=== PATIENT | male | born 2000 | race African-American/Black ===

== ENCOUNTER 2022-03-19 12:31 | Inpatient (IN) | payer OTHER ==
[~2022-03-19] VITALS: Ht 180.3 cm; Wt 96.2 kg
[2022-03-19] MEDS ORDERED: SODIUM CHLORIDE 0.9% 1,000 ML IV ONE ×2 (12:45→15:00)
[2022-03-19 14:17] LABS: BASOPHILS % 0.4 % (0.0-2.0); EOSINOPHILS % 0.1 % (0.0-5.0); HEMATOCRIT. 41.4 % (42.0-52.0); HEMOGLOBIN. 13.2 g/dL (14.0-18.0); LYMPHOCYTES % 9.4 % (20.0-50.0); MEAN CORPUSCULAR HEMOGLOBIN 29.4 pg (28.0-32.0); MEAN CORPUSCULAR VOLUME 92.1 fL (80.0-94.0); MEAN PLATELET VOLUME 8.8 fl (7.4-10.4); MONOCYTES % 7.4 % (2.0-8.0); NEUTROPHILS % 82.7 % (40.0-76.0); PLATELET 304 x1000/uL (130-400); RED CELL DISTRIBUTION WIDTH 13.4 % (11.6-14.6)
[2022-03-19 14:23] LABS: CLARITY URINE CLEAR (CLEAR); COLOR URINE YELLOW (YELLOW); KETONES URINE 4+ (NEGATIVE); LEUKOCYTE ESTERASE URINE NEGATIVE (NEGATIVE); NITRITE URINE NEGATIVE (NEGATIVE); OCCULT BLOOD URINE NEGATIVE (NEGATIVE); PROTEIN URINE NEGATIVE (NEGATIVE); SPECIFIC GRAVITY URINE 1.028 (1.005-1.030); UROBILINOGEN URINE 0.2 E.U./dL (0.2-1.0)
[2022-03-19 14:27] LABS: CHLORIDE 99 mEq/L (98-107)
[2022-03-19] MEDS ORDERED: ONDANSETRON HCL 4MG/2ML INJ IV STA (14:52)
[2022-03-19] MEDS ORDERED: INSULIN REGULAR (DRIP) 100 UNITS in SODIUM CHLORIDE 0.9% 99 ML IV ONE ×2 (15:00→15:30)
[2022-03-19] MEDS ORDERED: INSULIN REGULAR 100U/100ML PMX 100 ML IV SCH ×2 (15:30→20:00)
[2022-03-19] MEDS ORDERED: KCL 20MEQ/100ML PREMIX 100 ML IV PRN (19:15)
[2022-03-19] MEDS ORDERED: ONDANSETRON HCL 4MG/2ML INJ IV PRN (19:15)
[2022-03-19] MEDS ORDERED: MAGNESIUM/ALUMINUM HYDROXIDE/SIMETHICONE 30ML UDC PO PRN (19:15)
[2022-03-19] MEDS ORDERED: DOCUSATE SODIUM 100MG CAPSULE PO PRN (19:15)
[2022-03-19] MEDS ORDERED: GUAIFENESIN 200MG/10ML SUGAR FREE UDC PO PRN (19:15)
[2022-03-19 19:18] LABS: CHLORIDE 107 mEq/L (98-107)
[2022-03-19] MEDS ORDERED: SODIUM BICARBONATE 8.4% 1 MEQ/ML 50ML SYR IV NR (19:25)
[2022-03-19] MEDS ORDERED: TRAMADOL 50MG TABLET PO PRN (19:26)
[2022-03-19] MEDS ORDERED: DEXTROSE 50% WATER 50ML SYRINGE IV PRN (19:35)
[2022-03-19] MEDS ORDERED: MAGNESIUM 1 G PREMIX 100 ML IV NR (19:35)
[2022-03-19] MEDS: BLOOD SUGAR DIAGNOSTIC STRIP TEST SCH ×4 (20:43→23:00)
[2022-03-19] MEDS: DEXT 5%/0.45% NACL 1000ML 1,000 ML IV SCH (20:43)
[2022-03-19 22:00] VITALS: BP 138/73
[2022-03-19] MEDS ORDERED: SODIUM BICARBONATE 8.4% 1 MEQ/ML 50ML SYR IV ONE (22:00)
[2022-03-19 23:00] VITALS: BP 139/69
[2022-03-19 23:29] VITALS: BP 130/68
[2022-03-20] VITALS (41 sets, daily range): BP systolic 96–142; BP diastolic 43–87
[2022-03-20] MEDS: BLOOD SUGAR DIAGNOSTIC STRIP TEST SCH ×17 (01:00→21:00)
[2022-03-20 02:19] LABS: CHLORIDE 110 mEq/L (98-107)
[2022-03-20] MEDS: ACETAMINOPHEN 325MG TABLET PO PRN ×2 (03:06→14:46)
[2022-03-20 08:16] LABS: BASOPHILS % 0.3 % (0.0-2.0); EOSINOPHILS % 0.5 % (0.0-5.0); HEMATOCRIT. 35.7 % (42.0-52.0); HEMOGLOBIN. 11.7 g/dL (14.0-18.0); LYMPHOCYTES % 16.6 % (20.0-50.0); MEAN CORPUSCULAR HEMOGLOBIN 29.5 pg (28.0-32.0); MEAN CORPUSCULAR VOLUME 89.7 fL (80.0-94.0); MEAN PLATELET VOLUME 7.8 fl (7.4-10.4); MONOCYTES % 9.9 % (2.0-8.0); NEUTROPHILS % 72.7 % (40.0-76.0); PLATELET 267 x1000/uL (130-400); RED BLOOD CELL COUNT 3.98 mill/uL (4.7-6.1); RED CELL DISTRIBUTION WIDTH 12.8 % (11.6-14.6)
[2022-03-20 08:25] LABS: CHLORIDE 109 mEq/L (98-107)
[2022-03-20] MEDS: DEXT 5%/0.45% NACL 1000ML 1,000 ML IV SCH (08:56)
[2022-03-20 13:02] LABS: CHLORIDE 110 mEq/L (98-107)
[2022-03-20] MEDS ORDERED: NALOXONE HCL 0.4MG/ML VIAL IV PRN (15:00)
[2022-03-20] MEDS ORDERED: DEXTROSE 50% WATER 50ML SYRINGE IV PRN (16:30)
[2022-03-20 18:00] LABS: CHLORIDE 107 mEq/L (98-107)
[2022-03-20] MEDS: INSULIN LISPRO 100 UNITS/ML SUBCUT SCH ×2 (18:20→21:22)
[2022-03-20] MEDS: INSULIN GLARGINE 100 UNITS/ML SUBCUT SCH ×2 (19:04→21:23)
[2022-03-20] MEDS ORDERED: PNEUMOCOCCAL 23-VAL P-SAC VAC 0.5 ML IM ONE (21:00)
[2022-03-20 22:22] LABS: CHLORIDE 106 mEq/L (98-107)
[2022-03-21] VITALS (17 sets, daily range): BP systolic 118–132; BP diastolic 51–75
[2022-03-21] MEDS: BLOOD SUGAR DIAGNOSTIC STRIP TEST SCH ×2 (07:50→12:50)
[2022-03-21] MEDS: INSULIN LISPRO 100 UNITS/ML SUBCUT SCH (09:00)
[2022-03-21 12:48] LABS: HEMATOCRIT 36.9 % (42.0-52.0); HEMOGLOBIN 12.2 g/dL (14.0-18.0); MEAN CORPUSCULAR HEMOGLOBIN 29.6 pg (28.0-32.0); MEAN CORPUSCULAR VOLUME 89.4 fL (80.0-94.0); PLATELET 260 x1000/uL (130-400); RED BLOOD CELL COUNT 4.13 mill/uL (4.7-6.1); RED CELL DISTRIBUTION WIDTH 12.7 % (11.6-14.6)
[2022-03-21 16:57] LABS: CHLORIDE 106 mEq/L (98-107)
== END 2022-03-21 23:00 | disposition home or self-care (01) | DRG 639 ==
LOC: ER 12:31 → EDBEDREQSVC 14:54 → CVICU 17:12 → EDBEDREQ 17:26 → EDBEDREQTM 17:26 → ENRESERV 19:13
PROVIDERS: ADMIT Hospitalist; ATTEND Hospitalist
DX: E11.10 Type 2 diabetes mellitus with ketoacidosis without coma (principal); Z91.14 Patient's other noncompliance with medication regimen; Z79.4 Long term (current) use of insulin
CPT/HCPCS: 36415; 80048; 80053; 81003; 82010; 82962; 83036; 84484; 85025; 85027; 90732; 93005; 99291; J1815; J2405; J3475; J3480; J3490; J7030; J7050

== ENCOUNTER 2022-04-11 11:50 | Inpatient (IN) | payer OTHER ==
[~2022-04-11] VITALS: Ht 182.9 cm; Wt 88.0 kg
[2022-04-11] MEDS ORDERED: KETOROLAC 30MG/ML VIAL IV STA (12:21)
[2022-04-11] MEDS ORDERED: ONDANSETRON HCL 4MG/2ML INJ IV STA (12:21)
[2022-04-11] MEDS ORDERED: SODIUM CHLORIDE 0.9% 1,000 ML IV ONE ×2 (12:30)
[2022-04-11 13:16] LABS: HEMATOCRIT. 47.6 % (42.0-52.0); HEMOGLOBIN. 15.5 g/dL (14.0-18.0); MEAN CORPUSCULAR HEMOGLOBIN 30.2 pg (28.0-32.0); MEAN CORPUSCULAR VOLUME 92.9 fL (80.0-94.0); PLATELET 248 x1000/uL (130-400); RED BLOOD CELL COUNT 5.13 mill/uL (4.7-6.1)
[2022-04-11 13:22] LABS: CHLORIDE 95 mEq/L (98-107)
[2022-04-11 13:32] LABS: BETA HYDROXYBUTYRATE 8.2 mMol/L (0.0-0.3)
[2022-04-11 13:46] LABS: PLATELET ESTIMATE NORMAL
[2022-04-11] MEDS ORDERED: KCL 20MEQ/100ML PREMIX 100 ML IV ONE (15:00)
[2022-04-11] MEDS ORDERED: INSULIN REGULAR 100U/100ML PMX 100 ML IV SCH (16:00)
[2022-04-11] MEDS: INSULIN REGULAR 100U/100ML PMX 100 ML IV SCH (17:25)
[2022-04-11 17:38] LABS: CHLORIDE 103 mEq/L (98-107)
[2022-04-11] MEDS ORDERED: DEXT 5%/0.9% NACL KCL 20MEQ/L 1,000 ML IV ONE (18:45)
[2022-04-11 19:00] LABS: CHLORIDE 104 mEq/L (98-107)
[2022-04-11] MEDS ORDERED: INSULIN GLARGINE 100 UNITS/ML SUBCUT ONE (19:30)
[2022-04-11 20:50] LABS: CHLORIDE 104 mEq/L (98-107)
[2022-04-11 22:38] LABS: CHLORIDE 103 mEq/L (98-107)
[2022-04-12] VITALS (20 sets, daily range): BP systolic 97–136; BP diastolic 59–77
[2022-04-12] MEDS: BLOOD SUGAR DIAGNOSTIC STRIP TEST SCH ×7 (01:00→17:12)
[2022-04-12] MEDS ORDERED: DEXTROSE 50% WATER 50ML SYRINGE IV PRN ×2 (02:00)
[2022-04-12] MEDS ORDERED: INSULIN REGULAR 100U/100ML PMX 100 ML IV SCH (02:00)
[2022-04-12] MEDS: INSULIN REGULAR 100U/100ML PMX 100 ML IV SCH (02:25)
[2022-04-12] MEDS ORDERED: DEXT 5%/0.9% NACL 1,000 ML IV SCH (02:30)
[2022-04-12 05:27] LABS: BASOPHILS % 0.8 % (0.0-2.0); EOSINOPHILS % 0.6 % (0.0-5.0); HEMATOCRIT. 39.1 % (42.0-52.0); HEMOGLOBIN. 12.9 g/dL (14.0-18.0); LYMPHOCYTES % 25.4 % (20.0-50.0); MEAN CORPUSCULAR HEMOGLOBIN 29.9 pg (28.0-32.0); MEAN CORPUSCULAR VOLUME 90.4 fL (80.0-94.0); MONOCYTES % 12.4 % (2.0-8.0); NEUTROPHILS % 60.8 % (40.0-76.0); PLATELET 207 x1000/uL (130-400); RED BLOOD CELL COUNT 4.32 mill/uL (4.7-6.1); RED CELL DISTRIBUTION WIDTH 12.9 % (11.6-14.6)
[2022-04-12 05:32] LABS: CHLORIDE 109 mEq/L (98-107)
[2022-04-12 05:39] LABS: PHOSPHORUS 3.1 mg/dL (2.5-4.9)
[2022-04-12] MEDS ORDERED: BLOOD SUGAR DIAGNOSTIC STRIP TEST SCH (07:50)
[2022-04-12] MEDS: INSULIN LISPRO 100 UNITS/ML SUBCUT SCH ×3 (07:50→17:16)
[2022-04-12] MEDS ORDERED: INSULIN GLARGINE 100 UNITS/ML SUBCUT SCH (10:00)
[2022-04-12] MEDS ORDERED: INSULIN LISPRO 100 UNITS/ML SUBCUT NR ×2 (15:00→17:30)
== END 2022-04-12 19:57 | disposition home or self-care (01) | DRG 639 ==
LOC: ER 11:50 → CVICU 17:04 → EDBEDREQTM 17:07 → EDBEDREQ 17:07 → EDBEDREQSVC 17:07 → ENRESERV 22:28
PROVIDERS: ADMIT Internal Medicine; ATTEND Internal Medicine
DX: E11.10 Type 2 diabetes mellitus with ketoacidosis without coma (principal); R10.9 Unspecified abdominal pain; Z79.4 Long term (current) use of insulin
CPT/HCPCS: 36415; 71045; 80048; 80053; 82010; 82962; 83036; 83735; 84100; 85025; 93005; 99291; J1815; J1885; J2405; J3480; J7030

== ENCOUNTER 2023-04-10 21:19 | Inpatient (IN) | payer OTHER ==
[~2023-04-10] VITALS: Ht 167.6 cm; Wt 88.0 kg
[2023-04-10] MEDS ORDERED: KCL 20MEQ/100ML PREMIX 100 ML IV PRN (21:45)
[2023-04-10] MEDS ORDERED: SODIUM CHLORIDE 0.9% 1,000 ML IV SCH (21:45)
[2023-04-10] MEDS ORDERED: SODIUM CHLORIDE 0.9% 1,000 ML IV ONE (21:45)
[2023-04-10] MEDS ORDERED: DEXTROSE 50% WATER 50ML SYRINGE IV PRN (21:45)
[2023-04-10] MEDS ORDERED: DEXT 5%/0.9% NACL 1,000 ML IV SCH (21:45)
[2023-04-10] MEDS ORDERED: POTASSIUM CHLORIDE INJ 40 MEQ in SODIUM CHLORIDE 0.9% 230 ML IV PRN (21:45)
[2023-04-10 22:25] LABS: BG BASE EXCESS -23.7 mmol/L (-2.0-2.0); BG CARBOXYHEMOGLOBIN 0.9 % (0.5-1.5); BG DEOXYHEMOGLOBIN 1.9 % (0.0-5.0); BG FRACTION INSPIRED OXYGEN 21; BG METHEMOGLOBIN 0.5 % (0.0-1.5); BG OXYGEN SATURATION 98.1 % (92.0-98.5); BG OXYHEMOGLOBIN 96.7 % (94.0-97.0); BG PCO2 13.7 mmHg (35.0-45.0); BG PH 7.083 (7.350-7.450); BG PO2 131.8 mmHg (75.0-100.0); BG SAMPLE SITE LEFT BRACHIAL; BG TOTAL HEMOGLOBIN 15.9 g/dL (12.0-18.0); BG VENT MODE ROOM AIR
[2023-04-10] MEDS ORDERED: LACTATED RINGERS 1,000 ML IV STA (23:14)
[2023-04-10] MEDS ORDERED: INSULIN REGULAR (HUMULIN R) 300UNITS/3ML VIAL IV ONE (23:15)
[2023-04-11] MEDS ORDERED: INSULIN REGULAR (DRIP) 100 UNITS in SODIUM CHLORIDE 0.9% 99 ML IV SCH ×2
[2023-04-11] MEDS ORDERED: INSULIN REGULAR 100U/100ML PMX 100 ML IV SCH
[2023-04-11 00:55] LABS: BETA HYDROXYBUTYRATE 11.4 mMol/L (0.0-0.3); CALCIUM 8.6 mg/dL (8.7-10.4); CHLORIDE 100 mEq/L (98-107); CREATININE 1.6 mg/dL (0.6-1.3); SODIUM 135 mEq/L (136-145); UREA NITROGEN BLOOD 22 mg/dL (9-23)
[2023-04-11 01:28] LABS: CARBON DIOXIDE < 10 mEq/L (21-32); GLUCOSE 696 mg/dL (70-105); POTASSIUM 7.7 mEq/L (3.5-5.1)
[2023-04-11 01:29] LABS: PHOSPHORUS 9.7 mg/dL (2.5-4.9)
[2023-04-11] MEDS ORDERED: SODIUM CHLORIDE 0.9% 1,000 ML IV ONE (01:30)
[2023-04-11 01:34] LABS: BASOPHILS % 0.6 % (0.0-2.0); DIFFERENTIAL COMMENT 0; EOSINOPHILS % 0.1 % (0.0-5.0); HEMOGLOBIN. 15.1 g/dL (14.0-18.0); LYMPHOCYTES % 8.5 % (20.0-50.0); MEAN CORPUSCULAR HEMOGLOBIN 29.8 pg (28.0-32.0); MEAN CORPUSCULAR HGB CONC 30.9 g/dL (31.0-37.0); MEAN CORPUSCULAR VOLUME 96.4 fL (80.0-94.0); MEAN PLATELET VOLUME 8.5 fl (7.4-10.4); MONOCYTES % 7.5 % (2.0-8.0); NEUTROPHILS % 83.3 % (40.0-76.0); PLATELET 299 x1000/uL (130-400); RED BLOOD CELL COUNT 5.08 mill/uL (4.7-6.1); RED CELL DISTRIBUTION WIDTH 12.8 % (11.6-14.6); WHITE BLOOD COUNT 27.7 x1000/uL (4.5-11.0)
[2023-04-11] MEDS ORDERED: CALCIUM GLUCONATE 100MG/ML 10ML VIAL IV ONE (01:45)
[2023-04-11 01:47] LABS: CALCIUM 8.8 mg/dL (8.7-10.4); CHLORIDE 100 mEq/L (98-107); CREATININE 1.7 mg/dL (0.6-1.3); SODIUM 134 mEq/L (136-145); UREA NITROGEN BLOOD 22 mg/dL (9-23)
[2023-04-11 02:01] LABS: CARBON DIOXIDE < 10 mEq/L (21-32)
[2023-04-11 02:02] LABS: GLUCOSE 639 mg/dL (70-105)
[2023-04-11 09:28] LABS: BASOPHILS % 0.3 % (0.0-2.0); DIFFERENTIAL COMMENT 0; HEMATOCRIT. 44.5 % (42.0-52.0); HEMOGLOBIN. 14.6 g/dL (14.0-18.0); LYMPHOCYTES % 9.6 % (20.0-50.0); MEAN CORPUSCULAR HGB CONC 32.7 g/dL (31.0-37.0); MEAN CORPUSCULAR VOLUME 88.8 fL (80.0-94.0); MEAN PLATELET VOLUME 8.5 fl (7.4-10.4); MONOCYTES % 8.9 % (2.0-8.0); NEUTROPHILS % 81.2 % (40.0-76.0); PLATELET 270 x1000/uL (130-400); RED BLOOD CELL COUNT 5.01 mill/uL (4.7-6.1); RED CELL DISTRIBUTION WIDTH 12.3 % (11.6-14.6); WHITE BLOOD COUNT 20.8 x1000/uL (4.5-11.0)
[2023-04-11 09:55] LABS: ALANINE AMINOTRANSFERASE 22 IU/L (10-49); ASPARTATE AMINOTRANSFERASE 32 IU/L (<34); BETA HYDROXYBUTYRATE 5.4 mMol/L (0.0-0.3); BILIRUBIN TOTAL 1.3 mg/dL (0.1-1.0); CARBON DIOXIDE 17 mEq/L (21-32); CHLORIDE 109 mEq/L (98-107); CREATININE 1.5 mg/dL (0.6-1.3); POTASSIUM 4.4 mEq/L (3.5-5.1); PROTEIN TOTAL 7.1 g/dL (6.0-8.3); SODIUM 142 mEq/L (136-145); UREA NITROGEN BLOOD 21 mg/dL (9-23)
[2023-04-11 10:28] LABS: GLUCOSE 232 mg/dL (70-105)
[2023-04-11 16:16] LABS: ALANINE AMINOTRANSFERASE 17 IU/L (10-49); ALBUMIN 3.5 g/dL (3.2-4.8); ASPARTATE AMINOTRANSFERASE 21 IU/L (<34); BILIRUBIN TOTAL 1.9 mg/dL (0.1-1.0); CALCIUM 8.4 mg/dL (8.7-10.4); CARBON DIOXIDE 25 mEq/L (21-32); CHLORIDE 113 mEq/L (98-107); CREATININE 1.2 mg/dL (0.6-1.3); GLUCOSE 148 mg/dL (70-105); POTASSIUM 3.8 mEq/L (3.5-5.1); PROTEIN TOTAL 6.6 g/dL (6.0-8.3); SODIUM 144 mEq/L (136-145); UREA NITROGEN BLOOD 25 mg/dL (9-23)
[2023-04-11] MEDS ORDERED: ACETAMINOPHEN 325MG TABLET PO PRN (19:15)
[2023-04-11] MEDS ORDERED: IPRATROPIUM/ALBUTEROL 0.5-3(2.5)MG/3ML NEB HHN PRN (19:15)
[2023-04-11] MEDS ORDERED: DIPHENHYDRAMINE 50MG/ML VIAL IV PRN (19:15)
[2023-04-11] MEDS ORDERED: ONDANSETRON HCL 4MG/2ML INJ IV PRN (19:15)
[2023-04-11] MEDS ORDERED: CLONIDINE 0.1MG TABLET PO PRN (19:15)
[2023-04-11] MEDS ORDERED: INSULIN GLARGINE 100 UNITS/ML SUBCUT NR (19:30)
[2023-04-11 21:11] LABS: CLARITY URINE CLEAR (CLEAR); COLOR URINE YELLOW (YELLOW); GLUCOSE URINE 3+ (NEGATIVE); KETONES URINE 3+ (NEGATIVE); LEUKOCYTE ESTERASE URINE NEGATIVE (NEGATIVE); NITRITE URINE NEGATIVE (NEGATIVE); OCCULT BLOOD URINE NEGATIVE (NEGATIVE); PROTEIN URINE TRACE (NEGATIVE); SPECIFIC GRAVITY URINE 1.032 (1.005-1.030); UROBILINOGEN URINE 0.2 E.U./dL (0.2-1.0)
[2023-04-11 21:40] LABS: BACTERIA URINE NONE SEEN; RBC URINE NONE SEEN /hpf (0-2); SQUAMOUS EPITHELIAL CELL URINE FEW /lpf (RARE/1+); WBC URINE NONE SEEN /hpf (0-2)
[2023-04-12] MEDS ORDERED: DEXTROSE 50% WATER 50ML SYRINGE IV PRN ×2 (01:45→07:45)
[2023-04-12] MEDS: INSULIN LISPRO 100 UNITS/ML SUBCUT SCH ×4 (01:47→12:55)
[2023-04-12 03:47] VITALS: BP 106/50; PULSE 104; RESP 18; TEMP 98
[2023-04-12 04:00] VITALS: BP 106/60; PULSE 90; RESP 21; TEMP 98.2
[2023-04-12 08:00] VITALS: BP 98/58; PULSE 96; RESP 18; TEMP 98.4
[2023-04-12] MEDS ORDERED: FLUO20CA33 PO (09:35)
[2023-04-12] MEDS ORDERED: INSLIS SUBCUT (09:35)
[2023-04-12] MEDS ORDERED: FLUOXETINE HCL 20MG CAPSULE PO SCH (10:00)
[2023-04-12 10:27] LABS: BASOPHILS % 0.3 % (0.0-2.0); HEMATOCRIT. 41.8 % (42.0-52.0); HEMOGLOBIN. 13.5 g/dL (14.0-18.0); LYMPHOCYTES % 12.8 % (20.0-50.0); MEAN CORPUSCULAR HEMOGLOBIN 29.4 pg (28.0-32.0); MEAN CORPUSCULAR HGB CONC 32.3 g/dL (31.0-37.0); MEAN CORPUSCULAR VOLUME 91.1 fL (80.0-94.0); MEAN PLATELET VOLUME 8.4 fl (7.4-10.4); MONOCYTES % 7.2 % (2.0-8.0); NEUTROPHILS % 79.7 % (40.0-76.0); PLATELET 241 x1000/uL (130-400); RED BLOOD CELL COUNT 4.59 mill/uL (4.7-6.1); RED CELL DISTRIBUTION WIDTH 12.5 % (11.6-14.6); WHITE BLOOD COUNT 14.6 x1000/uL (4.5-11.0)
[2023-04-12 10:53] LABS: ALANINE AMINOTRANSFERASE 19 IU/L (10-49); ALBUMIN 3.6 g/dL (3.2-4.8); ASPARTATE AMINOTRANSFERASE 18 IU/L (<34); CALCIUM 8.5 mg/dL (8.7-10.4); CARBON DIOXIDE 16 mEq/L (21-32); CHLORIDE 103 mEq/L (98-107); CREATININE 1.3 mg/dL (0.6-1.3); POTASSIUM 4.3 mEq/L (3.5-5.1); PROTEIN TOTAL 6.9 g/dL (6.0-8.3); UREA NITROGEN BLOOD 17 mg/dL (9-23)
[2023-04-12 11:23] LABS: GLUCOSE 349 mg/dL (70-105); SODIUM 134 mEq/L (136-145)
[2023-04-12] MEDS ORDERED: BLOOD SUGAR DIAGNOSTIC STRIP TEST SCH (11:45)
[2023-04-12 12:00] VITALS: BP 111/63; PULSE 94; RESP 18; TEMP 97.7
[2023-04-12] MEDS ORDERED: INSULIN GLARGINE 100 UNITS/ML SUBCUT NR (12:15)
[2023-04-12 15:57] VITALS: BP 116/63; PULSE 89; TEMP 97.7; O2SAT 97
[2023-04-12 16:00] VITALS: BP 116/63; PULSE 89; RESP 18; TEMP 97.7
== END 2023-04-12 16:30 | disposition home or self-care (01) | DRG 639 ==
LOC: ER 21:19 → EDBEDREQ 23:22 → MICUSO 04-11 00:10 → EDBEDREQ 04-11 00:12 → EDBEDREQSVC 04-11 20:43 → 5WST 04-12 06:30
PROVIDERS: ADMIT Internal Medicine; ATTEND Internal Medicine
DX: E10.10 Type 1 diabetes mellitus with ketoacidosis without coma (principal); E83.39 Other disorders of phosphorus metabolism; E87.5 Hyperkalemia; Z79.4 Long term (current) use of insulin
CPT/HCPCS: 36415; 36600; 80048; 80051; 80053; 81003; 82010; 82375; 82805; 82962; 83735; 83930; 84100; 85025; 93005; 93970; 99291; J0610; J1815; J2405; J7030; J7042; J7120